=== PATIENT | female | born 1955 | race Caucasian/White ===

== ENCOUNTER 2017-11-01 20:41 | Emergency (ER) | payer OTHER ==
[2017-11-01] MEDS ORDERED: predniSONE TAB* 20 MG PO ONE (22:14)
[2017-11-01] MEDS ORDERED: Cephalexin CAP* 500 MG PO ONE (22:14)
--- NOTE | 2017-11-01 22:14 | ED ---
Skin Complaint - HPI Summary HPI Summary: 62-year-old female presents with rash to right arm since yesterday. She states she has got stung by a bee. She states she noticed increasing edema to right hand. She also notes some streaking up arm today. She denies any fevers. She is not diabetic. No history of cellulitis. She has never got symptoms before. She denies any chest pain or shortness breath. No sore throat. No bowel pain nausea or vomiting. She has been taking Benadryl and ibuprofen with minimal relief. States the rash is itchy. No new products or soaps. - History of Current Complaint Chief Complaint: EDAllergicReaction Time Seen by Provider: 11/01/17 22:06 Stated Complaint: BEE STING/RT HAND SWOLLEN Pain Intensity: 4 - Allergy/Home Medications Allergies/Adverse Reactions: Allergies Allergy/AdvReac Type Severity Reaction Status Date / Time morphine Allergy Unknown Verified 11/01/17 20:54 Reaction Details Home Medications: Home Medications Enalapril TAB* [Vasotec TAB*] 10 mg PO DAILY 11/01/17 [History Confirmed ] Levothyroxine TAB* [Synthroid TAB*] 175 mcg PO DAILY 11/01/17 [History Confirmed 11/01/17] metFORMIN* [Glucophage 500 MG TAB *] 500 mg PO BID 11/01/17 [History Confirmed 11/01/17] PMH/Surg Hx/FS Hx/Imm Hx Endocrine/Hematology History: Denies: Hx Anticoagulant Therapy Cardiovascular History: Reports: Hx Hypertension Infectious Disease History: Yes Infectious Disease History: Denies: Traveled Outside the [place] in Last 30 Days - Family History Known Family History: Positive: Hypertension - Social History Alcohol Use: Occasionally Substance Use Type: Reports: None Review of Systems Negative: Fever Negative: Chest Pain Negative: Shortness Of Breath Positive: Rash All Other Systems Reviewed And Are Negative: Yes Physical Exam Triage Information Reviewed: Yes Vital Signs On Initial Exam: Initial Vitals Temp Pulse Resp BP Pulse Ox 97.9 F 56 18 169/92 97 11/01/17 20:51 11/01/17 20:51 11/01/17 20:51 11/01/17 20:51 11/01/17 20:51 Vital Signs Reviewed: Yes Appearance: Positive: Well-Appearing Skin: Positive: Warm, Dry, Other - Erythema and edema noted to right posterior hand with streaking up right arm Head/Face: Positive: Normal Head/Face Inspection Eyes: Positive: Normal, Conjunctiva Clear ENT: Positive: Pharynx normal Respiratory/Lung Sounds: Positive: Clear to Auscultation, Breath Sounds Present Cardiovascular: Positive: Normal, RRR Musculoskeletal: Positive: Strength/ROM Intact - Right hand, Other - Good pulses , capillary refill less than 2 seconds Neurological: Positive: Normal Psychiatric: Positive: Normal Diagnostics - Vital Signs Vital Signs Temp Pulse Resp BP Pulse Ox 11/01/17 20:51 97.9 F 56 18 169/92 97 - Laboratory Lab Statement: Any lab studies that have been ordered have been reviewed, and results considered in the medical decision making process. Course/Dx - Course Course Of Treatment: 62-year-old female presents with rash to right arm since yesterday. She states she has got stung by a bee. She states she noticed increasing edema to right hand. She also notes some streaking up arm today. She denies any fevers. She is not diabetic. No history of cellulitis. She has never got symptoms before. She denies any chest pain or shortness breath. No sore throat. No bowel pain nausea or vomiting. She has been taking Benadryl and ibuprofen with minimal relief. States the rash is itchy. No new products or soaps. On exam has erythema and edema of posterior aspect of right hand with streaking up right arm. We'll treat as potential allergic reaction versus cellulitis. Patient also states that has on poison rehan on left arm. Will place on Keflex and give prednisone. Told if redness continues spread to return to ED. Patient understands agrees plan. - Differential Diagnoses - Skin Complaint Differential Diagnoses: Cellulitis, Contact Dermatitis, Other - allergic reaction - Diagnoses Provider Diagnoses: Cellulitis, Bee sting, Allergic reaction Discharge - Sign-Out/Discharge Documenting (check all that apply): Discharge/Admit/Transfer - Discharge Plan Condition: Good Disposition: HOME Prescriptions: Cephalexin CAP* [Keflex CAP*] 500 mg PO TID #29 cap predniSONE TAB* [Deltasone TAB*] 50 mg PO DAILY #4 tab Patient Education Materials: Cellulitis (ED) Referrals: Emily Boyer MD [Primary Care Provider] - Additional Instructions: Take Benadryl every 6 hours as need for itchiness Take ibuprofen every 6 hours for pain and swelling Take keflex three times a day for 10 days Take steroid once a day for 4 more days ice, elevate Return to ED if develop fever, or redness spreads after two days on antiibotics or any new or worsening symptoms - Billing Disposition and Condition Condition: GOOD Disposition: Home
[2017-11-01 22:56] VITALS: BP 0/0
== END 2017-11-01 22:55 | disposition home or self-care (01) ==
LOC: ED 20:41
DX: L03.113 Cellulitis of right upper limb (principal); T63.441A Toxic effect of venom of bees, accidental (unintentional), initial encounter; Y92.9 Unspecified place or not applicable; I10 Essential (primary) hypertension; Z88.5 Allergy status to narcotic agent; Z82.49 Family history of ischemic heart disease and other diseases of the circulatory system
CPT/HCPCS: 99282; A9270-GY; J7512